=== PATIENT | female | born 1975 | race Caucasian/White ===

== ENCOUNTER 2020-01-17 13:14 | Emergency (ER) | payer SELFPAY ==
[~2020-01-17] VITALS: Ht 167.6 cm; Wt 63.6 kg
[2020-01-17 13:18] VITALS: Ht 167.6 cm; Wt 63.6 kg
[2020-01-17 13:46] LABS: BASOPHILS 0.2 % (0-2); EOSINOPHILS 2.2 % (0-7); HEMATOCRIT 38.8 % (36.0-48.0); HEMOGLOBIN 12.7 g/dL (12-16); LYMPHOCYTES 44.4 % (15-50); MCH 29.9 pg (26.0-34.0); MCHC 32.7 g/dL (31.0-37.0); MCV 91.3 fL (80.0-100.0); MEAN PLATELET VOLUME 9.2 fL (7.4-10.4); MONOCYTES 8.9 % (2-11); NEUTROPHILS 44.3 % (40-80); PLATELET COUNT 209 10x3/uL (130-400); RBC 4.25 10x6/uL (4.00-5.40); RDW 13.6 % (11.5-14.5); WBC 4.1 10x3/uL (4.8-10.8)
[2020-01-17 13:56] LABS: CALC OSMOLALITY 272 mosm/kg (275-300); CALCIUM 8.9 mg/dL (8.5-10.1); CARBON DIOXIDE 31.9 mmol/L (21.0-32.0); CHLORIDE - SERUM 105 mmol/L (98-107); CREATININE - SERUM 0.9 mg/dL (0.6-1.3); GLUCOSE 88 mg/dL (74-106); POTASSIUM - SERUM 3.7 mmol/L (3.5-5.1); SODIUM 138 mmol/L (136-145); UREA NITROGEN 7 mg/dL (7-18); eGFR NON AFRICAN AMERICAN 72 mL/min (90-120)
[2020-01-17 14:05] LABS: ALBUMIN 3.7 g/dL (3.4-5.0); ALKALINE PHOSPHATASE 71 U/L (30-120); ALT (SGPT) 23 U/L (10-68); AMYLASE - SERUM 39 U/L (25-115); BILIRUBIN - TOTAL 0.51 mg/dL (0.2-1.3); LIPASE 68 U/L (73-393); PROTEIN - SERUM 6.6 g/dL (6.4-8.2); TROPONIN-I < 0.017 ng/mL (0.000-0.060)
[2020-01-17 14:08] LABS: BILIRUBIN NEGATIVE (NEGATIVE); GLUCOSE NEGATIVE (NEGATIVE); KETONE NEGATIVE (NEGATIVE); NITRITE POSITIVE (NEGATIVE); UROBILINOGEN NORMAL (NORMAL)
[2020-01-17 14:10] LABS: BACTERIA MANY /hpf (NEGATIVE); EPITHELIAL CELLS 0-5 /hpf (0-5); RED CELLS - URINE 0-5 /hpf (0-5); WHITE CELLS - URINE 0-5 /hpf (NEGATIVE)
[2020-01-17 14:13] LABS: HCG URINE NEGATIVE (NEGATIVE)
[2020-01-17] MEDS ORDERED: MACROBID100 MG PO (16:07)
[2020-01-17] MEDS ORDERED: MIRALAX17 GM PO (16:07)
[2020-01-17] MEDS ORDERED: KEFLEX500 MG PO (16:07)
[2020-01-17] MEDS ORDERED: MILK OF MAGNESI30 ML PO (16:07)
[2020-01-17 17:09] VITALS: BP 143/81
== END 2020-01-17 17:09 | disposition home or self-care (01) ==
LOC: D.ER 13:14
PROVIDERS: Family Medicine
DX: R10.31 Right lower quadrant pain (principal); K59.00 Constipation, unspecified; N39.0 Urinary tract infection, site not specified